=== PATIENT | female | born 1950 | race Asian ===

== ENCOUNTER 2022-12-15 01:14 | Emergency (ER) | payer OTHER ==
[~2022-12-15] VITALS: Ht 160 cm; Wt 54.5 kg
[2022-12-15 02:18] VITALS: BP 166/84; PULSE 110; RESP 15; TEMP 98
[2022-12-15 02:31] LABS: GLUCOMETER DEV NAME(LOC) ER.6; GLUCOSE,POINT OF CARE 181 MG/DL (70-110)
== END 2022-12-15 02:34 | disposition home or self-care (01) ==
LOC: EMS 01:14
DX: F03.90 Unspecified dementia, unspecified severity, without behavioral disturbance, psychotic disturbance, mood disturbance, and anxiety (principal)
CPT/HCPCS: 82962; 99285